=== PATIENT | female | born 1995 | race Two or more races ===

== ENCOUNTER 2025-05-10 07:36 | Emergency (ER) | payer OTHER ==
[~2025-05-10] VITALS: Ht 157.5 cm; Wt 68.0 kg
[2025-05-10 07:43] VITALS: BP 114/82; O2SAT 100
[2025-05-10] MEDS ORDERED: HYOSCYAMINE SULFATE 0.125 MG TAB.SUBL SL ONE (08:00)
[2025-05-10] MEDS ORDERED: ONDANSETRON HCL 2 MG/ML VIAL IV ONE (08:00)
[2025-05-10] MEDS ORDERED: FAMOtidine 10 MG/ML (4ML VIAL) IV ONE (08:00)
[2025-05-10] MEDS ORDERED: CIPROFLOXACIN IN 5 % DEXTROSE 400 MG/200 ML PIGGYBAG IV ONE ×2 (08:00→08:25)
[2025-05-10] MEDS ORDERED: 0.9 % SODIUM CHLORIDE 1,000 ML IV ONE (08:15)
[2025-05-10] MEDS ORDERED: HYOSCYAMINE SULFATE 0.125 MG TAB.SUBL ONE (08:25)
[2025-05-10] MEDS ORDERED: ONDANSETRON HCL 2 MG/ML VIAL ONE (08:25)
[2025-05-10] MEDS ORDERED: FAMOTIDINE/PF 20 MG/2 ML VIAL ONE (08:25)
[2025-05-10 09:18] LABS: BASO % 0.2 % (0.1-1.2); EOS # 0.02 (0.04-0.54); EOS % 0.2 % (0.7-7.0); LYMPH # 0.37 (1.18-3.74); LYMPH % 3.1 % (19.3-53.1); MEAN PLATELET VOLUME 10.50 fl (9.4-12.4); MONO # 0.38 (0.24-0.82); MONO % 3.2 % (4.7-12.5); NEUT # 11.19 (1.56-6.13); NEUT % 93.0 % (34.0-71.1); RED CELL DISTRIBUTION WIDTH 13.1 % (11.6-14.4)
[2025-05-10 09:32] LABS: COVID-19 AG NEGATIVE (NEGATIVE)
[2025-05-10 09:42] LABS: ALT/SGPT 19.0 U/L (12-78); AST/SGOT 13.0 U/L (15-37); BILIRUBIN TOTAL 0.74 mg/dL (0.3-1.2); BUN CREA RATIO 22.0 (7.0-25.0); CREATININE SERUM 0.72 mg/dL (0.55-1.02); GFR 95.77; GLOBULINA 3.9 G/DL (2.4-3.5); GLUCOSE FASTING 110.0 mg/dL (65-100); OSMOLALITY SERUM 285.0 MOSM/KG (275-295)
[2025-05-10] MEDS ORDERED: PROBIOTIC1 EAC2 PO (12:53)
[2025-05-10] MEDS ORDERED: CIPRO500 MG PO (12:53)
[2025-05-10] MEDS ORDERED: PEPCID AC20 MG PO (12:53)
[2025-05-10] MEDS ORDERED: LEVSIN/SL0.125 MG SL (12:53)
[2025-05-10] MEDS ORDERED: ZOFRAN8 MG PO (12:53)
== END 2025-05-10 13:16 | disposition home or self-care (01) ==
LOC: ER 07:36
PROVIDERS: General Practice
DX: R10.13 Epigastric pain (principal); K52.89 Other specified noninfective gastroenteritis and colitis; Z20.822 Contact with and (suspected) exposure to COVID-19; Z97.5 Presence of (intrauterine) contraceptive device